=== PATIENT | female | born 1965 | race Caucasian/White ===

== ENCOUNTER 2018-11-27 14:25 | Emergency (ER) | payer MEDICAID ==
[~2018-11-27] VITALS: Ht 162.6 cm; Wt 90.9 kg
[2018-11-27 14:33] VITALS: BP 192/132
[2018-11-27] MEDS ORDERED: TRAM50TA2 PO (15:31)
== END 2018-11-27 15:41 | disposition home or self-care (01) ==
LOC: ER 14:26
DX: S62.392A Other fracture of third metacarpal bone, right hand, initial encounter for closed fracture (principal); Z79.899 Other long term (current) drug therapy; X58.XXXA Exposure to other specified factors, initial encounter; Y93.89 Activity, other specified; Y92.89 Other specified places as the place of occurrence of the external cause; Y99.8 Other external cause status
CPT/HCPCS: 29125; 73130; 99283

== ENCOUNTER 2018-12-13 11:17 | Outpatient (CLI) | payer MEDICAID ==
[~2018-12-13 11:17] MED LIST: TRAM50TA2 PO
== END 2018-12-13 12:28 | disposition home or self-care (01) ==
LOC: ORTHO 11:17
PROVIDERS: ATTEND Orthopaedic Surgery
DX: S62.392D Other fracture of third metacarpal bone, right hand, subsequent encounter for fracture with routine healing (principal); X58.XXXD Exposure to other specified factors, subsequent encounter
CPT/HCPCS: 73130; G0463

== ENCOUNTER 2018-12-16 16:11 | Emergency (ER) | payer MEDICAID ==
[~2018-12-16] VITALS: Ht 162.6 cm; Wt 94.0 kg
[2018-12-16] MEDS ORDERED: acetaminophen 325mg tablet PO ONE (17:05)
[2018-12-16] MEDS ORDERED: acetaminophen w/codeine (30MG) #3 tablet PO ONE (17:15)
[2018-12-16] MEDS ORDERED: ACET-1059 PO (18:08)
[2018-12-16] MEDS ORDERED: OXYC10TA47 PO (18:18)
[2018-12-16] MEDS ORDERED: ONDA4TAB6 PO (18:18)
[2018-12-16] MEDS ORDERED: LORazepam 0.5 MG tablet PO STA (18:19)
[2018-12-16] MEDS ORDERED: oxyCODONE IR 5mg (immed. release) tablet PO ONE (18:20)
--- NOTE | 2018-12-16 18:21 | NUR ---
Pt is crying and upset based on her situation and diagnosis. Pt requested medication for anxiety. Dr. Keenan notified of the request.
[2018-12-16 18:23] VITALS: BP 162/82
[2018-12-16] MEDS ORDERED: HYDR-4353 PO (20:01)
== END 2018-12-16 18:40 | disposition home or self-care (01) ==
LOC: ER 16:12
DX: S22.20XA Unspecified fracture of sternum, initial encounter for closed fracture (principal); W01.198A Fall on same level from slipping, tripping and stumbling with subsequent striking against other object, initial encounter; Y93.89 Activity, other specified; Y92.89 Other specified places as the place of occurrence of the external cause; Y99.9 Unspecified external cause status
CPT/HCPCS: 71111; 71120; 93005; 99284

== ENCOUNTER 2019-01-31 08:57 | Outpatient (CLI) | payer MEDICAID ==
[~2019-01-31 08:57] MED LIST changes: +ONDA4TAB6 PO; -TRAM50TA2 PO
== END 2019-01-31 09:12 | disposition home or self-care (01) ==
LOC: ORTHO 08:57
PROVIDERS: ATTEND Orthopaedic Surgery
DX: S62.392D Other fracture of third metacarpal bone, right hand, subsequent encounter for fracture with routine healing (principal)
CPT/HCPCS: 73130; G0463